=== PATIENT | male | born 1945 | race Caucasian/White ===

== ENCOUNTER → 2016-08-06 | Outpatient (CLI) | payer MEDICARE, OTHER ==
[~2016-08-06] MED LIST: ACYC400T PO; ALLO100T PO; ASPI-482 PO; ATOR10TA PO; COLE3.754 PO; ESOM40CA PO; LEVO50TA5 PO; MEMA10TA PO; METO-269 PO; ROPI1TAB PO; TAMS0.4C2 PO; VALS80TA3 PO
--- NOTE | 2016-08-06 11:25 | KCIC ---
PROCEDURE MR of the right shoulder HISTORY Pain. COMPARISON April 01, 2014. TECHNIQUE Routine multiplanar sequences are obtained. FINDINGS The acromioclavicular joint is mildly degenerative with small undersurface osteophytes. There is signal at the undersurface the anterior supraspinatus tendon footprint compatible with a tear, which has not progressed since the prior study. There has been development an undersurface tear at the at the supraspinatus-infraspinatus tendon confluence, 90 percent deep and measuring about 9 mm AP. Intraosseous cyst of the humeral head deep to the rotator cuff attachment is again identified. Trace subdeltoid bursal fluid. No significant joint effusion. No evidence of a labral tear. The biceps tendon is intact. No bone lesion or acute fracture. No acute soft tissue injury. IMPRESSION 1. Development of a deep linear undersurface tear at the supraspinatus-infraspinatus tendon confluence. 2. The previously described undersurface tear of the anterior supraspinatus tendon footprint is re-demonstrated, and has not increased in size. Electronically signed by: Jacob Galvan MD (Aug 06, 2016 11:23:31)
== END | disposition home or self-care (01) ==
LOC: KCIC MRI 08:56
PROVIDERS: ATTEND Nurse Practitioner Family
DX: M25.511 Pain in right shoulder (principal)
CPT/HCPCS: 73221

== ENCOUNTER → 2019-09-14 | Outpatient (CLI) | payer MEDICARE, OTHER ==
[~2019-09-14] MED LIST changes: +ASPI325T8 PO; +COLE3.753 PO; -COLE3.754 PO; +FLUT9.9S NS; +NORT10CA PO; +PREG150C PO
== END ==
LOC: LAB 12:29
PROVIDERS: ATTEND Internal Medicine Gastroenterology
DX: Z01.818 Encounter for other preprocedural examination (principal); Z11.59 Encounter for screening for other viral diseases; K21.0 Gastro-esophageal reflux disease with esophagitis
CPT/HCPCS: C9803; U0003; 36415

== ENCOUNTER → 2019-09-19 | Day surgery (SDC) | payer MEDICARE, OTHER ==
[~2019-09-19] MED LIST changes: +IV RINGERS,LACTATED 1000ML 1,000 ML IV SCH; +LIDOCAINE 2% PF 5 ML VIAL. ONE; +PROPOFOL 10 MG/ML (20ML) VIAL. IV ONE
[2019-09-19 08:16] VITALS: BP 115/67
--- NOTE | 2019-09-19 08:28 | CONS ---
DATE OF CONSULTATION: 09/19/2019 REFERRING PHYSICIAN: Hong Terry MD REASON FOR CONSULTATION: Heartburn. HISTORY OF PRESENT ILLNESS: A 74-year-old male with past medical history significant for stage 3 kidney disease, gouty arthritis, hypertension, hypothyroidism, is seen for worsening heartburn located in the substernal area. He has been taking Protonix 40 mg daily. He has had a persistent cough as well despite stable weight and appetite. Intermittent aspiration and coughing are noted with continued symptoms and need to potentially get him off the PPI therapy. Upper endoscopy is recommended to assess for candidacy for possible Kaylah fundoplication. PAST MEDICAL HISTORY: Stage 3 kidney disease, status post CVA, GERD, fibromyalgia, hyperlipidemia, hypertension, hypothyroidism, diverticulosis, colonic polyps. ALLERGIES: PENICILLIN AND SULFA. MEDICATIONS: Include acyclovir, allopurinol, aspirin, atorvastatin, fluticasone, levothyroxine, Namenda, metoprolol, nortriptyline, Lyrica, Requip, tamsulosin, valsartan. FAMILY AND SOCIAL HISTORY: Nonsmoker, social drinker. Family history significant for breast cancer with sister, hypertension with father, NC with his father. PAST SURGICAL HISTORY: Eye surgery. REVIEW OF SYSTEMS: Per records. PHYSICAL EXAMINATION: GENERAL: Reveals a well-nourished, well-developed male who is alert, cooperative, in no acute distress. VITAL SIGNS: Temperature is 97, pulse 81, respiratory rate 20. LUNGS: Clear. CARDIOVASCULAR: Reveals an S1, S2 without S3, S4 or appreciable murmur. ABDOMEN: With a soft abdomen, normal bowel sounds, without appreciable hepatosplenomegaly. EXTREMITIES: No cyanosis, clubbing, edema. IMPRESSION: Intractable reflux with stage 3 kidney disease. Upper endoscopy is recommended to assess for possible fundoplication. Motility study may be needed as well. DAVID MATHEW MD DR: KUSHAL/ward JOB#: [id number] / [id number]
--- NOTE | 2019-09-21 17:06 | PATHOLOGY ---
[facility] Accession Number: [id number] . 01 Material submitted: . esophagus - DISTAL ESOPHAGUS BX. Modifiers: distal . 01 Clinical history: . GERD R/O Paniagua's . 02 Diagnosis: Esophageal biopsies, distal esophagus: - Reflux esophagitis. (ED [facility] 09/21/2019) [facility] 09/21/2019 1258 Local . 02 Comment: Sections of the distal esophageal biopsy reveal segments of tangentially oriented hyperplastic squamous esophageal mucosa. The findings are consistent with reflux esophagitis. There is no evidence of Paniagua's change, dysplasia, or malignancy. ([facility] 09/21/2019) . 02 Electronically signed: . Jose Rodriguez MD, Pathologist NPI- [id number] . 01 Gross description: . The specimen is received in formalin, labeled "Elias Warren, distal esophagus BX" and consists of multiple fragments of pink-martinez tissue measuring 1.3 x 0.7 x 0.2 cm in aggregate which are entirely submitted in A1. ([facility]; 09/20/2019) SYU/SYU 09/20/2019 1023 Local . 02 Pathologist provided ICD-10: K21.0 . 02 CPT . 776838 Specimen Comment: A courtesy copy of this report has been sent to [phone], [phone] Specimen Comment: [id number] Specimen Comment: Report sent to / DR LINDO Performed at: 01 [facility] [address], [place] [id number] MD Zain Bae MD Phone: [phone] Performed at: 02 [facility] [address] [place], [place] [id number] MD Jose Rodriguez MD Phone: [phone]
== END ==
LOC: ENDOS 06:52
PROVIDERS: ATTEND Internal Medicine Gastroenterology
DX: R12 Heartburn (principal); K29.50 Unspecified chronic gastritis without bleeding; K21.0 Gastro-esophageal reflux disease with esophagitis; I12.9 Hypertensive chronic kidney disease with stage 1 through stage 4 chronic kidney disease, or unspecified chronic kidney disease; N18.3 Chronic kidney disease, stage 3 (moderate); K21.9 Gastro-esophageal reflux disease without esophagitis; M79.7 Fibromyalgia; Z86.73 Personal history of transient ischemic attack (TIA), and cerebral infarction without residual deficits; E03.9 Hypothyroidism, unspecified; Z86.010 Personal history of colon polyps; Z88.1 Allergy status to other antibiotic agents; Z88.0 Allergy status to penicillin
CPT/HCPCS: 43239; 88305; J2704; J3490